=== PATIENT | male | born 1940 | race Caucasian/White ===

== ENCOUNTER 2016-09-12 06:39 | Day surgery (SDC) | payer MEDICARE ==
--- NOTE | 2016-09-09 12:07 | NUR ---
NN PATIENT IS POOR HISTORIAN CAN NOT REMEMBER IF HE HAD CERTAIN PROCEDURE OR NOT.PATIENT STATES DOES NOT RECALL BEING GIVEN CERTAIN DX FROM DOCTORS,ALL PAST MEDICAL HX FROM PATIENT AND PAST ADMITS-PT DENIES IS CHARTED ON ASSESSMENT.
[~2016-09-12] VITALS: Ht 166.4 cm; Wt 68.7 kg
[~2016-09-12 06:39] MED LIST: AMLO5TAB66 PO; FISH1CAP2 PO; HYDR-2164 PO; LISI-127 PO; LUTE1CAP PO; SAW/1TAB2 PO; SIMV20TA89 PO; UBID1CAP47 PO
--- OUTSIDE RECORDS SUMMARY | 2016-09-12 06:43 | XMS REPORT | Referral Summary ---
Author Author [facility], Family Medicine Organization [facility], [facility] Address Unknown Phone Unavailable Care Team Providers Care Microbiological Lab Technician Name Role Phone Lashanda Guerra Primary Care Physician [phone] Encounter VC Date(s): 04/08/15 - 04/08/15 [facility], [address] [place] [id number]- Discharge Disposition: 01-Home or Self Care Attending Physician: Sami Guerra MD Admitting Physician: Sami Guerra MD Vital Signs Most recent to 1 oldest [Reference Range]: Peripheral Pulse 64 bpm Rate [60-100 bpm] (04/08/15 2:56 PM) Blood Pressure 126/68 mmHg [90-140/60-90 mmHg] (04/08/15 2:56 PM) SpO2 97 % (04/08/15 2:56 PM) Problem List Condition Effective Dates Status Health Status Informant Allergic Active rhinitis/hay fever(Confirmed) Arthritis(Confirmed) Active Back Active problems(Confirmed) Benign essential Active hypertension(Confirm ed) BPH (benign Active prostatic hypertrophy)(Confirm ed)1 Bladder Active trabeculation, gross(Confirmed) Hematuria(Confirmed) Active Chronic interstitial Active cystitis - mild to moderate(Confirmed) Neck Active problems(Confirmed) Diverticulosis(Confi Active rmed) hx of broken Active bones(Confirmed)2 Measles(Confirmed) Active Combined Active hyperlipidemia(Confi rmed) Nocturia(Confirmed) Active Prostatism(Confirmed Active ) Bilateral renal Active cysts, benign(Confirmed)3 Varicella without Active complication(Confirm ed) 1left prostatic lobe more obstructed than right (apex) 2broken collar bone, and shoulder - see conversion document 3painless microscopic Allergies, Adverse Reactions, Alerts Substance Reaction Severity Status penicillin Active Medications Natalia 180 mg, Oral, Daily, 0 Refill(s) Start Date: 04/08/15 Status: Ordered Natalia Oral, 0 Refill(s) Start Date: 08/11/14 Status: Ordered amLODIPine 5 mg oral tablet See Instructions, TAKE 1/2 TABLET DAILY (NEED APPOINTMENT), # 30 tabs, 0 Refill( s), Pharmacy: [facility], TAKE 1 TABLET DAILY (NEED APPOINTMENT) Start Date: 02/25/15 Status: Ordered B-50 Blood Booster B-50 Blood Booster, 0 Refill(s) Start Date: 04/08/15 Status: Ordered Co Q-10 100 mg, Oral, Daily, 0 Refill(s) Start Date: 04/04/14 Status: Ordered GNC Prostate GNC Prostate, 0 Refill(s) Start Date: 06/27/14 Status: Ordered hydrochlorothiazide 25 mg oral tablet See Instructions, TAKE ONE-HALF (1/2) TABLET DAILY NEEDS APPT PRIOR TO ADDITIONAL REFILLS, # 15 tabs, 0 Refill(s), Pharmacy: [facility], TAKE ONE-HALF (1/2) TABLET DAILY; NEEDS APPT PRIOR TO ADDITIONAL REFILLS Start Date: 02/25/15 Status: Ordered ibuprofen 200 mg, BID, 0 Refill(s) Start Date: 06/27/14 Status: Ordered lisinopril 10 mg oral tablet See Instructions, TAKE 1/2 TABLET DAILY, # 90 tabs, eRx: [facility], TAKE 1 TABLET DAILY Start Date: 10/07/14 Status: Ordered Lutein Oral, Daily, 0 Refill(s) Start Date: 04/08/15 Status: Ordered multivitamin 1 tabs, Oral, Daily, 0 Refill(s) Start Date: 04/04/14 Status: Ordered simvastatin 40 mg oral tablet See Instructions, TAKE 1/2 TABLET AT BEDTIME (ONCE A DAY) (NEED APPOINTMENT FOR ANY FURTHER REFILLS), # 90 tabs, eRx: [facility], TAKE 1 TABLET AT BEDTIME (ONCE A DAY) (NEED APPOINTMENT FOR ANY FURTHER REFILLS) Start Date: 10/07/14 Status: Ordered Results Chemistry Most recent to 1 oldest [Reference Range]: Albumin Lvl [3.4-4.8 4.3 gm/dL gm/dL] (04/08/15 3:25 PM) Total Protein 6.6 gm/dL [6.2-8.1 gm/dL] (04/08/15 3:25 PM) ALT [0-55 U/L] 25 U/L (04/08/15 3:25 PM) AST [5-34 U/L] 26 U/L (04/08/15 3:25 PM) Alk Phos [40-150 55 U/L U/L] (04/08/15 3:25 PM) Bili Total [0.2-1.2 0.6 mg/dL mg/dL] (04/08/15 3:25 PM) Bili Direct [0.0-0.5 0.2 mg/dL mg/dL] (04/08/15 3:25 PM) Bili Indirect 0.4 mg/dL [0.0-1.0 mg/dL] (04/08/15 3:25 PM) Trig [0-149 mg/dL] 142 mg/dL (04/08/15 3:25 PM) HDL [40-84 mg/dL] 46 mg/dL (04/08/15 3:25 PM) LDL Direct [0-129 86 mg/dL mg/dL] (04/08/15 3:25 PM) Immunizations Vaccine Date Refusal Reason tetanus-diphth toxoids (Td) adult/adol 08/10/13 tetanus-diphth toxoids (Td) adult/adol 12/15/99 Procedures Procedure Date Related Diagnosis Body Site S/P colonoscopy1 11/25/10 S/P cystoscopy and hydrodistention 08/20/08 S/P colonoscopy 2006 S/P right hemicolectomy2 2006 S/P vasectomy 1979 H/O circumcision 1964 S/P tonsillectomy 1950 S/p appendectomy 1948 1cscope, tubular adenoma x1, hyperplastic polyp x1; repeat 5 years 2adenomatous lesion of ascending colon Social History Social History Type Response Smoking Status Never smoker Assessment and Plan Extracted from: Title: Ambulatory Patient Education Author: Sami Guerra MD Date: Family Medicine Fat and Cholesterol Control Diet Fat and cholesterol levels in your blood and organs are influenced by your diet. High levels of fat and cholesterol may lead to diseases of the heart, small and large blood vessels, gallbladder, liver, and pancreas. CONTROLLING FAT AND CHOLESTEROL WITH DIET Although exercise and lifestyle factors are important, your diet is phelps. That is because certain foods are known to raise cholesterol and others to lower it. The goal is to balance foods for their effect on cholesterol and more importantly, to replace saturated and trans fat with other types of fat, such as monounsaturated fat, polyunsaturated fat, and omega-3 fatty acids. On average, a person should consume no more than 15 to 17 g of saturated fat daily. Saturated and trans fats are considered "bad" fats, and they will raise LDL cholesterol. Saturated fats are primarily found in animal products such as meats, butter, and cream. However, that does not mean you need to give up all your favorite foods. Today, there are good tasting, low-fat, low-cholesterol substitutes for most of the things you like to eat. Choose low-fat or nonfat alternatives. Choose round or loin cuts of red meat. These types of cuts are lowest in fat and cholesterol. Chicken (without the skin), fish, veal, and ground turkey breast are great choices. Eliminate fatty meats, such as hot dogs and salami. Even shellfish have little or no saturated fat. Have a 3 oz (85 g) portion when you eat lean meat, poultry, or fish. Trans fats are also called "partially hydrogenated oils." They are oils that have been scientifically manipulated so that they are solid at room temperature resulting in a longer shelf life and improved taste and texture of foods in which they are added. Trans fats are found in stick margarine, some tub margarines, cookies, crackers, and baked goods. When baking and cooking, oils are a great substitute for butter. The monounsaturated oils are especially beneficial since it is believed they lower LDL and raise HDL. The oils you should avoid entirely are saturated tropical oils, such as coconut and palm. Remember to eat a lot from food groups that are naturally free of saturated and trans fat, including fish, fruit, vegetables, beans, grains (barley, rice, couscous, bulgur wheat), and pasta (without cream sauces). IDENTIFYING FOODS THAT LOWER FAT AND CHOLESTEROL Soluble fiber may lower your cholesterol. This type of fiber is found in fruits such as apples, vegetables such as broccoli, potatoes, and carrots, legumes such as beans, peas, and lentils, and grains such as barley. Foods fortified with plant sterols (phytosterol) may also lower cholesterol. You should eat at least 2 g per day of these foods for a cholesterol lowering effect. Read package labels to identify low-saturated fats, trans fat free, and low-fat foods at the supermarket. Select cheeses that have only 2 to 3 g saturated fat per ounce. Use a heart-healthy tub margarine that is free of trans fats or partially hydrogenated oil. When buying baked goods (cookies, crackers), avoid partially hydrogenated oils. Breads and muffins should be made from whole grains (whole-wheat or whole oat flour, instead of "flour" or "enriched flour") . Buy non-creamy canned soups with reduced salt and no added fats. FOOD PREPARATION TECHNIQUES Never deep-rojas. If you must rojas, either stir-rojas, which uses very little fat, or use non-stick cooking sprays. When possible, broil, bake, or roast meats, and steam vegetables. Instead of putting butter or margarine on vegetables, use lemon and herbs, applesauce, and cinnamon (for squash and sweet potatoes). Use nonfat yogurt, salsa, and low-fat dressings for salads. LOW-SATURATED FAT / LOW-FAT FOOD SUBSTITUTES Meats / Saturated Fat (g) Avoid: Steak, marbled (3 oz/85 g) / 11 g Choose: Steak, lean (3 oz/85 g) / 4 g Avoid: Hamburger (3 oz/85 g) / 7 g Choose: Hamburger, lean (3 oz/85 g) / 5 g Avoid: Ham (3 oz/85 g) / 6 g Choose: Ham, lean cut (3 oz/85 g) / 2.4 g Avoid: Chicken, with skin, dark meat (3 oz/85 g) / 4 g Choose: Chicken, skin removed, dark meat (3 oz/85 g) / 2 g Avoid: Chicken, with skin, light meat (3 oz/85 g) / 2.5 g Choose: Chicken, skin removed, light meat (3 oz/85 g) / 1 g Dairy / Saturated Fat (g) Avoid: Whole milk (1 cup) / 5 g Choose: Low-fat milk, 2% (1 cup) / 3 g Choose: Low-fat milk, 1% (1 cup) / 1.5 g Choose: Skim milk (1 cup) / 0.3 g Avoid: Hard cheese (1 oz/28 g) / 6 g Choose: Skim milk cheese (1 oz/28 g) / 2 to 3 g Avoid: Cottage cheese, 4% fat (1 cup) / 6.5 g Choose: Low-fat cottage cheese, 1% fat (1 cup) / 1.5 g Avoid: Ice cream (1 cup) / 9 g Choose: Sherbet (1 cup) / 2.5 g Choose: Nonfat frozen yogurt (1 cup) / 0.3 g Choose: Frozen fruit bar / trace Avoid: Whipped cream (1 tbs) / 3.5 g Choose: Nondairy whipped topping (1 tbs) / 1 g Condiments / Saturated Fat (g) Avoid: Mayonnaise (1 tbs) / 2 g Choose: Low-fat mayonnaise (1 tbs) / 1 g Avoid: Butter (1 tbs) / 7 g Choose: Extra light margarine (1 tbs) / 1 g Avoid: Coconut oil (1 tbs) / 11.8 g Choose: [place] oil (1 tbs) / 1.8 g Choose: [place] oil (1 tbs) / 1.7 g Choose: Safflower oil (1 tbs) / 1.2 g Choose: [place] oil (1 tbs) / 1.4 g Choose: Soybean oil (1 tbs) / 2.4 g Choose: Canola oil (1 tbs) / 1 g Document Released: 05/08/2006 Document Revised: 09/02/2013 Document Reviewed: [facility] Patient Information 2015 [facility]. This information is not intended to replace advice given to you by your health care provider. Make sure you discuss any questions you have with your health care provider. Hypertension Hypertension, commonly called high blood pressure, is when the force of blood pumping through your arteries is too strong. Your arteries are the blood vessels that carry blood from your heart throughout your body. A blood pressure reading consists of a higher number over a lower number, such as 110/72. The higher number (systolic) is the pressure inside your arteries when your heart pumps. The lower number (diastolic) is the pressure inside your arteries when your heart relaxes. Ideally you want your blood pressure below 120/80. Hypertension forces your heart to work harder to pump blood. Your arteries may become narrow or stiff. Having hypertension puts you at risk for heart disease, stroke, and other problems. RISK FACTORS Some risk factors for high blood pressure are controllable. Others are not. Risk factors you cannot control include: Race. You may be at higher risk if you are . Age. Risk increases with age. Gender. Men are at higher risk than women before age 45 years. After age 65 , women are at higher risk than men. Risk factors you can control include: Not getting enough exercise or physical activity. Being overweight. Getting too much fat, sugar, calories, or salt in your diet. Drinking too much alcohol. SIGNS AND SYMPTOMS Hypertension does not usually cause signs or symptoms. Extremely high blood pressure (hypertensive crisis) may cause headache, anxiety, shortness of breath , and nosebleed. DIAGNOSIS To check if you have hypertension, your health care provider will measure your blood pressure while you are seated, with your arm held at the level of your heart. It should be measured at least twice using the same arm. Certain conditions can cause a difference in blood pressure between your right and left arms. A blood pressure reading that is higher than normal on one occasion does not mean that you need treatment. If one blood pressure reading is high, ask your health care provider about having it checked again. TREATMENT Treating high blood pressure includes making lifestyle changes and possibly taking medicine. Living a healthy lifestyle can help lower high blood pressure. You may need to change some of your habits. Lifestyle changes may include: Following the DASH diet. This diet is high in fruits, vegetables, and whole grains. It is low in salt, red meat, and added sugars. Getting at least 2 hours of brisk physical activity every week. Losing weight if necessary. Not smoking. Limiting alcoholic beverages. Learning ways to reduce stress. If lifestyle changes are not enough to get your blood pressure under control, your health care provider may prescribe medicine. You may need to take more than one. Work closely with your health care provider to understand the risks and benefits. HOME CARE INSTRUCTIONS Have your blood pressure rechecked as directed by your health care provider. Take medicines only as directed by your health care provider. Follow the directions carefully. Blood pressure medicines must be taken as prescribed. The medicine does not work as well when you skip doses. Skipping doses also puts you at risk for problems. Do not smoke. Monitor your blood pressure at home as directed by your health care provider. SEEK MEDICAL CARE IF: You think you are having a reaction to medicines taken. You have recurrent headaches or feel dizzy. You have swelling in your ankles. You have trouble with your vision. SEEK IMMEDIATE MEDICAL CARE IF: You develop a severe headache or confusion. You have unusual weakness, numbness, or feel faint. You have severe chest or abdominal pain. You vomit repeatedly. You have trouble breathing. MAKE SURE YOU: Understand these instructions. Will watch your condition. Will get help right away if you are not doing well or get worse. Document Released: 05/08/2006 Document Revised: 09/22/2014 Document Reviewed: [facility] Patient Information 2015 [employer]. This information is not intended to replace advice given to you by your health care provider. Make sure you discuss any questions you have with your health care provider. No follow up information was provided. Extracted from: Title: Office Visit Note Author: Sami Guerra MD Date: 04/08/15 Assessment/Plan Benign essential hypertension Will get lab today fasting and continue with the current medications. Ordered: Office Visit Level 3 Est 35051 Bilateral renal cysts, benign Ordered: Office Visit Level 3 Est 33845 BPH (benign prostatic hypertrophy) Ordered: Office Visit Level 3 Est 98458 Combined hyperlipidemia Ordered: Cholesterol HDL Hepatic Function Panel LDL Direct Office Visit Level 3 Est 37416 Triglycerides Orders: amLODIPine, See Instructions, TAKE 1/2 TABLET DAILY (NEED APPOINTMENT) , # 30 tabs, 0 Refill(s), Pharmacy: [facility], TAKE 1 TABLET DAILY (NEED APPOINTMENT) lisinopril, See Instructions, TAKE 1/2 TABLET DAILY, # 90 tabs, eRx: [facility], TAKE 1 TABLET DAILY simvastatin, See Instructions, TAKE 1/2 TABLET AT BEDTIME (ONCE A DAY) (NEED APPOINTMENT FOR ANY FURTHER REFILLS), # 90 tabs, eRx: [facility], TAKE 1 TABLET AT BEDTIME (ONCE A DAY) (NEED APPOINTMENT FOR ANY FURTHER REFILLS)
--- OUTSIDE RECORDS SUMMARY | 2016-09-12 06:43 | XMS REPORT | Referral Summary ---
Author Author [facility], Family [facility] Organization [facility] Address Unknown Phone Unavailable Care Team Providers Care Civil Project Engineer Name Role Phone Lashanda Guerra Primary Care Physician [phone] Encounter Date(s): 06/03/16 - 06/03/16 [facility], [address] [place] [address]- Discharge Diagnosis: Eczema Discharge Diagnosis: Combined hyperlipidemia Discharge Diagnosis: Benign essential hypertension Discharge Disposition: 01-Home or Self Care Attending Physician: Sami Guerra MD Admitting Physician: Sami Guerra MD Vital Signs Most recent to 1 oldest [Reference Range]: Blood Pressure 122/74 mmHg [90-140/60-90 mmHg] (06/03/16 10:13 AM) Problem List Condition Effective Dates Status Health [...] Substance Reaction Severity Status penicillin Active Medications amLODIPine 5 mg oral tablet See Instructions, TAKE ONE-HALF TABLET BY MOUTH ONCE DAILY/ PT DUE FOR APPOINTMENT, # 45 tabs, 0 Refill(s), Pharmacy: [id number] Start Date: 06/03/16 Status: Ordered Co Q-10 100 mg, Oral, Daily, 0 Refill(s) Start Date: 04/04/14 Status: Ordered Elocon 0.1% topical cream 1 nirmal, Topical, BID, # 30 g, 0 Refill(s), Pharmacy: [id number] Start Date: 06/03/16 Stop Date: 06/13/16 Status: Ordered GNC Prostate GNC Prostate, 0 Refill(s) Start Date: 06/27/14 Status: Ordered hydroCHLOROthiazide 25 mg oral tablet See Instructions, TAKE ONE-HALF TABLET BY MOUTH ONCE DAILY, # 45 tabs, eRx: [facility], TAKE ONE-HALF TABLET BY MOUTH ONCE DAILY Start Date: 04/19/16 Status: Ordered lisinopril 10 mg oral tablet See Instructions, TAKE ONE-HALF TABLET BY MOUTH ONCE DAILY, # 45 tabs, eRx: [facility], TAKE ONE-HALF TABLET BY MOUTH ONCE DAILY Start Date: 04/19/16 Status: Ordered Lutein Oral, Daily, 0 Refill(s) Start Date: 04/08/15 Status: Ordered Several herbal supplements Several herbal supplements, 0 Refill(s) Start Date: 11/13/15 Status: Ordered simvastatin 40 mg oral tablet See Instructions, TAKE ONE-HALF TABLET BY MOUTH ONCE DAILY AT BEDTIME, # 90 tabs , eRx: [id number] Start Date: 06/03/16 Status: Ordered Results No data available for this section Immunizations Given and Recorded Vaccine Date Status Refusal Reason tetanus-diphth toxoids (Td) adult/adol 08/10/13 Given tetanus-diphth toxoids (Td) adult/adol 12/15/99 Recorded Procedures Procedure Date Related Diagnosis Body Site S/P colonoscopy1 11/25/10 S/P cystoscopy and hydrodistention 08/20/08 S/P colonoscopy 2006 S/P right hemicolectomy2 2006 S/P vasectomy 1979 H/O circumcision 1964 S/P tonsillectomy 1949 S/p appendectomy 1947 1cscope, tubular adenoma x1, hyperplastic polyp x1; repeat 5 years 2adenomatous lesion of ascending colon Social History Social History Type Response Smoking Status Never smoker Assessment and Plan Extracted from: Title: Ambulatory Patient Education Author: Sami Guerra MD Date: Preventive Medicine Heart Disease Prevention Heart disease is a leading cause of . There are many things you can do to help prevent heart disease. BE PHYSICALLY ACTIVE Physical activity is good for your heart. It helps control your blood pressure, cholesterol levels, and weight. Try to be physically active every day. Ask your health care provider what activities are best for you. BE A HEALTHY WEIGHT Extra weight can strain your heart and affect your blood pressure and cholesterol levels. Lose weight with diet and exercise if recommended by your health care provider. EAT HEART-HEALTHY FOODS Follow a healthy eating plan as recommended by your health care provider or dietitian. Heart-healthy foods include: High-fiber foods. These include oat bran, oatmeal, and whole-grain breads and cereals. Fruits and vegetables. Avoid: Alcohol. Fried foods. Foods high in saturated fat. These include meats, butter, whole dairy products, shortening, and coconut or palm oil. Salty foods. These include canned food, luncheon meat, salty snacks, and fast food. KEEP YOUR CHOLESTEROL LEVELS UNDER CONTROL Cholesterol is a substance that is used for many important functions. When your cholesterol levels are high, cholesterol can stick to the insides of your blood vessels, making them narrow or clog. This can lead to chest pain (angina) and a heart attack. Keep your cholesterol levels under control as recommended by your health care provider. Have your cholesterol checked at least once a year. Target cholesterol levels (in mg/dL) for most people are: Total cholesterol below 200. LDL cholesterol below 100. HDL cholesterol above 40 in men and above 50 in women. Triglycerides below 150. KEEP YOUR BLOOD PRESSURE UNDER CONTROL Having high blood pressure (hypertension) puts you at risk for stroke and other forms of heart disease. Keep your blood pressure under control as recommended by your health care provider. Ask your health care provider if you need treatment to lower your blood pressure. If you are 1839 years of age, have your blood pressure checked every 35 years. If you are 40 years of age or older, have your blood pressure checked every year. DO NOT USE TOBACCO PRODUCTS Tobacco smoke can damage your heart and blood vessels. Do not use any tobacco products including cigarettes, chewing tobacco, or electronic cigarettes. If you need help quitting, ask your health care provider. TAKE MEDICINES DIRECTED Take medicines only as directed by your health care provider. Ask your health care provider whether you should take an aspirin every day. Taking aspirin can help reduce your risk of heart disease and stroke. FOR MORE INFORMATION To find out more about heart disease, visit the [place] [employer]'s website at www.americanheart.org This information is not intended to replace advice given to you by your health care provider. Make sure you discuss any questions you have with your health care provider. Document Released: 12/20/2004 Document Revised: 05/29/2015 Document Reviewed: [employer] Patient Education 2016 [employer] No follow up information was provided. Extracted from: Title: Office Visit Note Author: Sami Guerra MD Date: 06/03/16 Assessment/Plan 1.Benign essential hypertension Continue with the current medications. Ordered: Office Visit Level 4 Est 37931 2.Combined hyperlipidemia No change in treatment and recheck lab in November with next office visit. Ordered: Office Visit Level 4 Est 80460 3.Eczema Rx for Elocon cream. Ordered: Office Visit Level 4 Est 66120
--- OUTSIDE RECORDS SUMMARY | 2016-09-12 06:43 | XMS REPORT | Referral Summary ---
Author Organization Unknown Address Unknown Phone Unavailable Care Team Providers Care Printing Manager Name Role Phone Lashanda Guerra Primary Care Physician [phone] Encounter VC Date(s): 06/27/14 - 06/27/14 Via [facility] Reyez, Puneet, Family [address] [place] [address] Discharge Diagnosis: Bilateral renal cysts, benign Discharge Diagnosis: BPH (benign prostatic hypertrophy) Discharge Diagnosis: Benign essential hypertension Discharge Diagnosis: Arthritis Discharge Diagnosis: Combined hyperlipidemia Discharge Disposition: Home or Self Care Attending Physician: Sami Guerra MD Admitting Physician: Sami Guerra MD Vital Signs Most recent to 1 oldest [Reference Range]: Temperature Tympanic 36.3 degC [36.6-38.1 degC] *LOW* (06/27/14 8:07 AM) Blood Pressure 124/80 mmHg [90-140/60-90 mmHg] (06/27/14 8:07 AM) Problem List Condition Effective Dates Status [...] 5 mg oral tablet See Instructions, TAKE 0.5 TABLET DAILY, # 90 tabs, eRx: [facility], TAKE 1 TABLET DAILY Special Instructions: TAKE 0.5 TABLET DAILY Start Date: 12/04/13 Status: Ordered Co Q-10 100 mg, Oral, Daily, 0 Refill(s) Start Date: 04/04/14 Status: Ordered Fish Oil 1000 mg oral capsule 1 caps, Oral, BID, # 60 caps, 0 Refill(s) Start Date: 04/04/14 Status: Ordered GNC Prostate GNC Prostate, 0 Refill(s) Start Date: 06/27/14 Status: Ordered hydrochlorothiazide 25 mg oral tablet See Instructions, TAKE ONE-HALF (1/2) TABLET DAILY (NEED APPOINTMENT FOR REFILLS ), # 45 tabs, eRx: [facility], TAKE ONE-HALF (1/2) TABLET DAILY (NEED APPOINTMENT FOR REFILLS) Special Instructions: TAKE ONE-HALF (1/2) TABLET DAILY (NEED APPOINTMENT FOR REFILLS) Start Date: 06/02/14 Status: Ordered ibuprofen 200 mg, BID, 0 Refill(s) Start Date: 06/27/14 Status: Ordered lisinopril 10 mg oral tablet See Instructions, TAKE 0.5 TABLET DAILY, # 90 tabs, 1 Refill(s), eRx: [facility], TAKE 1 TABLET DAILY Special Instructions: TAKE 0.5 TABLET DAILY Start Date: 12/12/13 Status: Ordered multivitamin 1 tabs, Oral, Daily, 0 Refill(s) Start Date: 04/04/14 Status: Ordered simvastatin 40 mg oral tablet 1 tabs, Oral, Bedtime (once a day), Pt needs appt for any further refills. Fax to [facility] , # 90 tabs, 0 Refill(s) Special Instructions: Pt needs appt for any further refills. Fax to [facility] Start Date: 11/29/13 Status: Ordered Results Hematology Most recent to 1 oldest [Reference Range]: WBC [4.8-10.8 K/uL] 5.6 K/uL (06/27/14 8:51 AM) RBC [4.60-6.20 M/uL] 4.50 M/uL *LOW* (06/27/14 8:51 AM) Hgb [14.0-18.0 14.0 gm/dL gm/dL] (06/27/14 8:51 AM) Hct [42.0-52.0 %] 39.6 % *LOW* (06/27/14:51 AM) MCV [82.0-99.0 fL] 88.0 fL (06/27/14 8:51 AM) MCH [27.0-32.0 pg] 31.1 pg (06/27/14 8:51 AM) MCHC [32.0-36.0 35.4 gm/dL gm/dL] (06/27/14 8:51 AM) RDW [11.5-14.5 %] 12.6 % (06/27/14 8:51 AM) Platelet [150-400 239 K/uL K/uL] (06/27/14 8:51 AM) MPV [8.8-14.8 fL] 9.2 fL (06/27/14 8:51 AM) Immature 0.0 % Granulocytes (06/27/14 8:51 AM) [0.0-1.0 %] Neutrophils [51-75 66 % %] (06/27/14 8:51 AM) Lymphocytes [20-46 21 % %] (06/27/14 8:51 AM) Monocytes [4-11 %] 8 % (06/27/14 8:51 AM) Eosinophils [0-4 %] 4 % (06/27/14 8:51 AM) Basophils [0-2 %] 1 % (06/27/14 8:51 AM) Neutro Absolute 3.74 THOUS [1.90-7.00 THOUS] (06/27/14 8:51 AM) Lymph Absolute 1.19 THOUS [0.80-3.30 THOUS] (06/27/14 8:51 AM) Medina Absolute 0.46 THOUS [0.30-1.00 THOUS] (06/27/14 8:51 AM) Eos Absolute 0.22 THOUS [0.00-0.50 THOUS] (06/27/14 8:51 AM) Baso Absolute 0.03 THOUS [0.00-0.20 THOUS] (06/27/14 8:51 AM) Chemistry Most recent to 1 oldest [Reference Range]: Sodium Lvl [135-144 144 mEq/L mEq/L] (06/27/14 8:51 AM) Potassium Lvl 3.9 mEq/L [3.5-5.2 mEq/L] (06/27/14 8:51 AM) Chloride [99-111 107 mEq/L mEq/L] (06/27/14 8:51 AM) CO2 [23-31 mEq/L] 28 mEq/L (06/27/14 8:51 AM) AGAP [3-20] 9 (06/27/14 8:51 AM) BUN [8-26 mg/dL] 19 mg/dL (06/27/14 8:51 AM) Glucose Lvl [70-99 100 mg/dL mg/dL] *HI* (06/27/14 8:51 AM) Creatinine Lvl 0.88 mg/dL [0.72-1.25 mg/dL] (06/27/14 8:51 AM) eGFR [>60 mL/min] >60 mL/min 1 (06/27/14 8:51 AM) Calcium Lvl 9.4 mg/dL [8.9-10.5 mg/dL] (06/27/14 8:51 AM) Albumin Lvl [3.4-4.8 4.0 gm/dL gm/dL] (06/27/14 8:51 AM) Total Protein 6.2 gm/dL [6.2-8.1 gm/dL] (06/27/14 8:51 AM) Globulin [1.8-4.0 2.2 gm/dL gm/dL] (06/27/14 8:51 AM) ALT [0-55 unit/L] 21 unit/L (06/27/14 8:51 AM) AST [5-34 unit/L] 22 unit/L (06/27/14 8:51 AM) Alk Phos [40-150 57 unit/L unit/L] (06/27/14 8:51 AM) Bili Total [0.2-1.2 0.7 mg/dL mg/dL] (06/27/14 8:51 AM) PSA (wihout Reflex 0.2 ng/mL 2 Free) [0.0-6.5 (06/27/14 8:51 AM) ng/mL] Chol [0-199 mg/dL] 135 mg/dL (06/27/14 8:51 AM) Trig [0-149 mg/dL] 87 mg/dL (06/27/14 8:51 AM) HDL [40-84 mg/dL] 40 mg/dL (06/27/14 8:51 AM) LDL [0-130 mg/dL] 78 mg/dL (06/27/14 8:51 AM) VLDL Cholesterol 17 mg/dL [0-28 mg/dL] (06/27/14 8:51 AM) Cardiac Risk 3.4 [0.0-5.7] (06/27/14 8:51 AM) 1Result Comment: Multiply eGFR results by 1.21 for race. 2Result Comment: AUA PSA Best Practice Guidelines: Age-Adjusted PSA Values by Ethnic Group Age Range Asians - Caucasians Americans 40-49 0-2.0 0-2.0 0-2.5 50-59 0-3.0 0-4.0 0-3.5 60-69 0-4.0 0-4.5 0-4.5 70-79 0-5.0 0-5.5 0-6.5 Immunizations Vaccine Date Refusal Reason tetanus-diphth toxoids (Td) adult/adol 08/10/13 tetanus-diphth toxoids (Td) adult/adol 12/15/99 Procedures Procedure Date Related Diagnosis Body Site S/P colonoscopy1 11/25/10 S/P cystoscopy and hydrodistention 08/20/08 S/P colonoscopy 2006 S/P right hemicolectomy2 2006 S/P vasectomy 1979 H/O circumcision 1965 S/P tonsillectomy 1950 S/p appendectomy 1947 1cscope, tubular adenoma x1, hyperplastic polyp x1; repeat 5 years 2adenomatous lesion of ascending colon Social History Social History Type Response Smoking Status Never smoker Assessment and Plan Extracted from: Title: Ambulatory Patient Education Author: Sami Guerra MD Date: 06/27 Family Medicine Arthritis, Nonspecific Arthritis is inflammation of a joint. This usually means pain, redness, warmth or swelling are present. One or more joints may be involved. There are a number of types of arthritis. Your caregiver may not be able to tell what type of arthritis you have right away. CAUSES The most common cause of arthritis is the wear and tear on the joint ( osteoarthritis ). This causes damage to the cartilage, which can break down over time. The knees, hips, back and neck are most often affected by this type of arthritis. Other types of arthritis and common causes of joint pain include: Sprains and other injuries near the joint. Sometimes minor sprains and injuries cause pain and swelling that develop hours later. Rheumatoid arthritis. This affects hands, feet and knees. It usually affects both sides of your body at the same time. It is often associated with chronic ailments, fever, weight loss and general weakness. Crystal arthritis. Gout and pseudo gout can cause occasional acute severe pain, redness and swelling in the foot, ankle, or knee. Infectious arthritis. Bacteria can get into a joint through a break in overlying skin. This can cause infection of the joint. Bacteria and viruses can also spread through the blood and affect your joints. Drug, infectious and allergy reactions. Sometimes joints can become mildly painful and slightly swollen with these types of illnesses. SYMPTOMS Pain is the main symptom. Your joint or joints can also be red, swollen and warm or hot to the touch. You may have a fever with certain types of arthritis, or even feel overall ill. The joint with arthritis will hurt with movement. Stiffness is present with some types of arthritis. DIAGNOSIS Your caregiver will suspect arthritis based on your description of your symptoms and on your exam. Testing may be needed to find the type of arthritis: Blood and sometimes urine tests. X-ray tests and sometimes CT or MRI scans. Removal of fluid from the joint (arthrocentesis ) is done to check for bacteria, crystals or other causes. Your caregiver (or a specialist) will numb the area over the joint with a local anesthetic, and use a needle to remove joint fluid for examination. This procedure is only minimally uncomfortable. Even with these tests, your caregiver may not be able to tell what kind of arthritis you have. Consultation with a specialist (manager security ) may be helpful. TREATMENT Your caregiver will discuss with you treatment specific to your type of arthritis. If the specific type cannot be determined, then the following general recommendations may apply. Treatment of severe joint pain includes: Rest. Elevation. Anti-inflammatory medication (for example, ibuprofen) may be prescribed. Avoiding activities that cause increased pain. Only take [id number] or prescription medicines for pain and discomfort as recommended by your caregiver. Cold packs over an inflamed joint may be used for 10 to 15 minutes every hour. Hot packs sometimes feel better, but do not use overnight. Do not use hot packs if you are diabetic without your caregiver's permission. A cortisone shot into arthritic joints may help reduce pain and swelling. Any acute arthritis that gets worse over the next 1 to 2 days needs to be looked at to be sure there is no joint infection. Long-term arthritis treatment involves modifying activities and lifestyle to reduce joint stress jarring. This can include weight loss. Also, exercise is needed to nourish the joint cartilage and remove waste. This helps keep the muscles around the joint strong. HOME CARE INSTRUCTIONS Do not take aspirin to relieve pain if gout is suspected. This elevates uric acid levels. Only take vwol-nys-vfjntmm or prescription medicines for pain, discomfort or fever as directed by your caregiver. Rest the joint as much as possible. If your joint is swollen, keep it elevated. Use crutches if the painful joint is in your leg. Drinking plenty of fluids may help for certain types of arthritis. Follow your caregiver's dietary instructions. Try low-impact exercise such as: Swimming. Water aerobics. Biking. Walking. Morning stiffness is often relieved by a warm shower. Put your joints through regular yhycp-zm-mcfsms. SEEK MEDICAL CARE IF: You do not feel better in 24 hours or are getting worse. You have side effects to medications, or are not getting better with treatment. SEEK IMMEDIATE MEDICAL CARE IF: You have a fever. You develop severe joint pain, swelling or redness. Many joints are involved and become painful and swollen. There is severe back pain and/or leg weakness. You have loss of bowel or bladder control. Document Released: 06/15/2005 Document Revised: 07/30/2012 Document Reviewed: [facility] Patient Information 2014 [employer]. No follow up information was provided. Extracted from: Title: Office Visit Note Author: Sami Guerra MD Date: 06/27/14 Assessment/Plan Arthritis Continue with the current medications. Suggest starting edmundo for allergies and Naphcon-A for the eye. Continue with the drops for the dry eyes. Also use Cortisone-10 for the eczema to the ear canals. Ordered: Office Visit Level 4 Est 78868 Benign essential hypertension Ordered: Office Visit Level 4 Est 96735 Bilateral renal cysts, benign Ordered: Office Visit Level 4 Est 31771 BPH (benign prostatic hypertrophy) Ordered: Office Visit Level 4 Est 58873 Combined hyperlipidemia Ordered: Office Visit Level 4 Est 90803 Orders: CBC w/ Differential Comprehensive Metabolic Panel Lipid Panel Prostate Specific Antigen
--- OUTSIDE RECORDS SUMMARY | 2016-09-12 06:43 | XMS REPORT | Referral Summary ---
Author Organization Unknown Address Unknown Phone Unavailable Care Team Providers Care Access Service Representative Name Role Phone Lashanda Guerra Primary Care Physician [phone] Encounter VC Date(s): 08/11/14 - 08/11/14 Via [facility]GARD Reyez, Puneet [address] [place] [id number] Discharge Diagnosis: Abscess of neck Discharge Disposition: Home or Self Care Attending Physician: Quoc Camara MD Admitting Physician: Quoc Camara MD Referring Physician: Sami Guerra MD Vital Signs Most recent to 1 oldest [Reference Range]: Temperature Tympanic 37.2 degC [36.6-38.1 degC] (08/11/14 5:33 PM) Peripheral Pulse 77 bpm Rate [60-100 bpm] (08/11/14 5:33 PM) Blood Pressure 120/76 mmHg [90-140/60-90 mmHg] (08/11/14 5:33 PM) Most recent to 1 oldest [Reference Range]: SpO2 97 % (08/11/14 5:33 PM) Problem List Condition Effective Dates Status [...] Reaction Severity Status penicillin Active Medications Natalia Oral, 0 Refill(s) Start Date: 08/11/14 Status: Ordered amLODIPine 5 mg oral tablet See Instructions, TAKE 1 TABLET DAILY (NEED APPOINTMENT), # 90 tabs, eRx: [facility], TAKE 1 TABLET DAILY (NEED APPOINTMENT) Special Instructions: TAKE 1 TABLET DAILY (NEED APPOINTMENT) Start Date: 08/04/14 Status: Ordered Bactrim DS 800 mg-160 mg oral tablet 1 tabs, Oral, BID, X 10 days, # 20 tabs, 0 Refill(s), Pharmacy: [id number] Start Date: 08/11/14 Stop Date: 08/21/14 Status: Ordered Co Q-10 100 mg, Oral, Daily, 0 Refill(s) Start Date: 04/04/14 Status: Ordered GNC Prostate GNC Prostate, 0 Refill(s) Start Date: 06/27/14 Status: Ordered hydrochlorothiazide 25 mg oral tablet See Instructions, TAKE ONE-HALF (1/2) TABLET DAILY, # 45 tabs, 1 Refill(s), [facility]acy: [facility], TAKE ONE-HALF (1/2) TABLET DAILY Special Instructions: TAKE ONE-HALF (1/2) TABLET DAILY Start Date: 08/04/14 Status: Ordered ibuprofen 200 mg, BID, 0 [...] appt for any further refills. Fax to [facility] , # 90 tabs, 0 Refill(s) Special Instructions: Pt needs appt for any further refills. Fax to [facility] Start Date: 11/29/13 Status: Ordered Results No data available for this section Immunizations Vaccine Date Refusal Reason tetanus-diphth toxoids (Td) adult/adol 08/10/13 tetanus-diphth toxoids (Td) adult/adol 12/15/99 Procedures Procedure Date Related Diagnosis Body Site Incision and drainage of abscess (eg, 08/11/14 carbuncle, suppurative hidradenitis, cutaneous or subcutaneous abscess, cyst, furuncle, or paronychia); simple or single S/P colonoscopy1 11/25/10 S/P cystoscopy and hydrodistention 08/20/08 S/P colonoscopy 2006 S/P right hemicolectomy2 2006 S/P vasectomy 1979 H/O circumcision 1964 S/P tonsillectomy 1949 S/p appendectomy 1947 1cscope, tubular adenoma x1, hyperplastic polyp x1; repeat 5 years 2adenomatous lesion of ascending colon Social History Social History Type Response Smoking Status Never smoker Assessment and Plan Extracted from: Title: Office Visit Note Author: Quoc Camara MD Date: 08/11/14 Assessment/Plan Abscess of neck The area over the abscess was anesthetized with 1 percent lidocaine. After cleansing with Betadine. A stab wound was then made with an 11 blade and a small amount of purulent drainage was expressed from the area. The opening was explored with straight Lakisha clamp, no pockets were noted. Cavity was not large enough to pack. A sterile dressing was applied. I encouraged him to use heat to the area and we started him on Bactrim DS 1 by mouth twice a day for 10 days. If it's not improving over the next few days. He should follow-up with his regular PCP. Ordered: Drain Skin Abscess, Simple/Single 93460 Orders: sulfamethoxazole-trimethoprim, 1 tabs, Oral, BID, X 10 days, # 20 tabs , 0 Refill(s), Pharmacy: [id number]
--- OUTSIDE RECORDS SUMMARY | 2016-09-12 06:43 | XMS REPORT | Continuity of Care Document ---
Author Author Sincere PAULINO, Shayla [facility] Address [address] [facility] [place] [address] Phone Care Team Providers Care Radiologic Technician Name Role Phone Sami Guerra PP Unavailable Payers Payer name Insurance type Covered republican ID Authorization(s) Unknown Problems Condition Effective Dates (start - stop) Clinical Status Contact dermatitis - *Acute Hypertension, benign - *Chronic Hyperlipidemia - *Chronic Hypertension, Benign - *Chronic Hypertension, Unspecified - *Stable Encounter for therapeutic drug monitoring - *Routine Other and unspecified hyperlipidemia - *Controlled Hypertension, Benign - *Controlled Contact dermatitis - *Chronic Health examination of defined subpopulation - *Chronic Routine Medical Exam - Hypertension, Unspecified - *Controlled Other and unspecified hyperlipidemia - *Chronic Encounter for therapeutic drug monitoring - *Chronic 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 - BENIGN HYPERTENSION - ALLERGIC RHINITIS NOS - Family History Family Member Diagnosis Age At Onset Status Unknown Social History Social History Element Description Quantity Unknown Allergies, Adverse Reactions, Alerts Substance Reaction Severity Status LATEX itchyrash, arms, hands and trunk Unknown PENICILLINS Unknown Medications Medication Instructions Dosage Effective Dates (start - stop) Status triamcinolone acetonide 0.1 % topical ointment apply by topical route 2 times every day a thin layer to the affected area(s) 0 - Active prednisone 20 mg tablet take 2 tablets by oral route every day for 5 days - No Longer Active lisinopril 10 mg tablet Take 1 tablet by mouth every day. - Active Fish Oil 300 mg-1,000 mg capsule,delayed release 1 am 2 pm - Active lutein-zeaxanthin 25 mg-5 mg capsule daily - Active Multiple Vitamins tablet take 1 Tablet by Oral route every day 0 2012 - Active daily - Active simvastatin 40 mg tablet Take 0.5 tablets by mouth at bedtime. 2012 - Active hydrochlorothiazide 25 mg tablet Take 0.5 tablets by mouth every day. - Active Norvasc 5 mg tablet Take 1 tablet by mouth every day. - Active Immunizations Vaccine Date Status Comments Tdap cancelled - Cancelled reason: Doctor cancelled order. Td (7 yrs or older) completed Results Test Name Date and Time Measure Units Reference Range Abnormal Flag Comments Unknown Vital Signs Date / Time: Height Weight Pulse Rate Blood Pressure Temperature /11:09:00 155.00 lbs 55 /min 128/82 mm[Hg] 97.5 F Procedures Procedure Date Unknown Encounters Encounter Location Date Patient Visit [facility] Patient Visit [facility] Patient Visit [facility] Patient Visit [facility] Patient Visit [facility] Patient Visit [facility] Patient Visit [facility] Patient Visit [facility] Patient Visit [facility] Patient Visit [facility] Patient Visit Conversion Advance Directives Directive Effective Date Unknown
--- OUTSIDE RECORDS SUMMARY | 2016-09-12 06:43 | XMS REPORT | Referral Summary ---
Author Author [facility], [facility] Organization [facility], [facility] Address Unknown Phone Unavailable Care Team Providers Care Proof Plate Maker Name Role Phone Lashanda Guerra Primary Care Physician [phone] Encounter VC Date(s): 11/17/15 - 11/17/15 [facility], [address] [place] [id number]- Discharge Disposition: 01-Home or Self Care Attending Physician: Sami Guerra MD Admitting Physician: Sami Guerra MD Vital Signs Most recent to 1 oldest [Reference Range]: Temperature Tympanic 35.9 degC [36.6-38.1 degC] *LOW* (11/17/15 9:45 AM) Peripheral Pulse 80 bpm Rate [60-100 bpm] (11/17/15 9:45 AM) Blood Pressure 122/80 mmHg [90-140/60-90 mmHg] (11/17/15 9:45 AM) Problem List Condition Effective Dates Status [...] tablet See Instructions, TAKE 1/2 TABLET DAILY . will need appt. for next refill., # 45 Each, 0 Refill(s), Pharmacy: [id number], TAKE 1/2 TABLET DAILY . will need appt. for next refill. Start Date: 07/07/15 Status: Ordered B-50 Blood Booster B-50 Blood Booster, 0 Refill(s) Start Date: 04/08/15 Status: Ordered Co Q-10 100 mg, Oral, Daily, 0 Refill(s) Start Date: 04/04/14 Status: Ordered GNC Prostate GNC Prostate, 0 Refill(s) Start Date: 06/27/14 Status: Ordered hydrochlorothiazide 25 mg oral tablet See Instructions, TAKE ONE-HALF TABLET BY MOUTH ONCE DAILY, # 45 tabs, eRx: [place] [id number], TAKE ONE-HALF TABLET BY MOUTH ONCE DAILY Start Date: 10/16/15 Status: Ordered lisinopril 10 mg oral tablet See Instructions, TAKE ONE-HALF TABLET BY MOUTH ONCE DAILY, # 45 tabs, eRx: [place] [id number], TAKE ONE-HALF TABLET BY MOUTH ONCE DAILY Start Date: 10/16/15 Status: Ordered Lutein Oral, Daily, 0 Refill(s) Start Date: 04/08/15 Status: Ordered multivitamin 1 tabs, Oral, Daily, 0 Refill(s) Start Date: 04/04/14 Status: Ordered Several herbal supplements Several herbal supplements, 0 Refill(s) Start Date: 11/13/15 Status: Ordered simvastatin 40 mg oral tablet See Instructions, TAKE 1/2 TABLET AT BEDTIME (ONCE A DAY) (NEED APPOINTMENT FOR ANY FURTHER REFILLS), # 90 tabs, 0 Refill(s), Pharmacy: [place] [id number], TAKE 1/2 TABLET AT BEDTIME (ONCE A DAY) (NEED APPOINTMENT FOR ANY FURTHER REFILLS) Start Date: 05/21/15 Status: Ordered Tobrex 0.3% ophthalmic solution 1 drops, Eye-Both, QID, X 7 days, # 5 mL, 0 Refill(s), Pharmacy: [facility] Start Date: 11/17/15 Stop Date: 11/24/15 Status: Ordered Results No data available for this section Immunizations Vaccine Date Refusal Reason tetanus-diphth toxoids (Td) adult/adol 08/10/13 tetanus-diphth toxoids (Td) adult/adol 12/15/99 Procedures Procedure Date Related Diagnosis Body Site S/P colonoscopy1 11/25/10 S/P cystoscopy and hydrodistention 08/20/08 S/P colonoscopy 2006 S/P right hemicolectomy2 2006 S/P vasectomy 1979 H/O circumcision 1965 S/P tonsillectomy 1950 S/p appendectomy 194 1cscope, tubular adenoma x1, hyperplastic polyp x1; repeat 5 years 2adenomatous lesion of ascending colon Social History Social History Type Response Smoking Status Never smoker Assessment and Plan Extracted from: Title: Ambulatory Patient Education Author: Sami Guerra MD Date: Ophthalmology Bacterial Conjunctivitis Bacterial conjunctivitis, commonly called pink eye, is an inflammation of the clear membrane that covers the white part of the eye (conjunctiva). The inflammation can also happen on the underside of the eyelids. The blood vessels in the conjunctiva become inflamed, causing the eye to become red or pink. Bacterial conjunctivitis may spread easily from one eye to another and from person to person (contagious). CAUSES Bacterial conjunctivitis is caused by bacteria. The bacteria may come from your own skin, your upper respiratory tract, or from someone else with bacterial conjunctivitis. SYMPTOMS The normally white color of the eye or the underside of the eyelid is usually pink or red. The pink eye is usually associated with irritation, tearing, and some sensitivity to light. Bacterial conjunctivitis is often associated with a thick, yellowish discharge from the eye. The discharge may turn into a crust on the eyelids overnight, which causes your eyelids to stick together. If a discharge is present, there may also be some blurred vision in the affected eye. DIAGNOSIS Bacterial conjunctivitis is diagnosed by your caregiver through an eye exam and the symptoms that you report. Your caregiver looks for changes in the surface tissues of your eyes, which may point to the specific type of conjunctivitis. A sample of any discharge may be collected on a cotton-tip swab if you have a severe case of conjunctivitis, if your cornea is affected, or if you keep getting repeat infections that do not respond to treatment. The sample will be sent to a lab to see if the inflammation is caused by a bacterial infection and to see if the infection will respond to antibiotic medicines. TREATMENT Bacterial conjunctivitis is treated with antibiotics. Antibiotic eyedrops are most often used. However, antibiotic ointments are also available. Antibiotics pills are sometimes used. Artificial tears or eye washes may ease discomfort. HOME CARE INSTRUCTIONS To ease discomfort, apply a cool, clean washcloth to your eye for 10 20 minutes, 34 times a day. Gently wipe away any drainage from your eye with a warm, wet washcloth or a cotton ball. Wash your hands often with soap and water. Use paper towels to dry your hands. Do not share towels or washcloths. This may spread the infection. Change or wash your pillowcase every day. You should not use eye makeup until the infection is gone. Do not operate machinery or drive if your vision is blurred. Stop using contact lenses. Ask your caregiver how to sterilize or replace your contacts before using them again. This depends on the type of contact lenses that you use. When applying medicine to the infected eye, do not touch the edge of your eyelid with the eyedrop bottle or ointment tube. SEEK IMMEDIATE MEDICAL CARE IF: Your infection has not improved within 3 days after beginning treatment. You had yellow discharge from your eye and it returns. You have increased eye pain. Your eye redness is spreading. Your vision becomes blurred. You have a fever or persistent symptoms for more than 23 days. You have a fever and your symptoms suddenly get worse. You have facial pain, redness, or swelling. MAKE SURE YOU: Understand these instructions. Will watch your condition. Will get help right away if you are not doing well or get worse. This information is not intended to replace advice given to you by your health care provider. Make sure you discuss any questions you have with your health care provider. Document Released: 05/08/2006 Document Revised: 05/29/2015 Document Reviewed: Exit[employer] Patient Information [address] [facility]. No follow up information was provided. Extracted from: Title: Office Visit Note Author: Sami Guerra MD Date: 11/17/15 Assessment/Plan Left conjunctivitis Rx for Tobrex ophth. Ordered: Office Visit Level 3 Est 02088 Orders: tobramycin ophthalmic, 1 drops, Eye-Both, QID, X 7 days, # 5 mL, 0 Refill(s), Pharmacy: [id number]
--- OUTSIDE RECORDS SUMMARY | 2016-09-12 06:43 | XMS REPORT | Continuity of Care Document ---
Author Author [facility] Organization [facility] Address Unknown Phone Unavailable Allergies Active Description Code Type Severity Reaction Onset Reported/Identified Relationship to Patient Clinical Status Yes penicillin NKMA N/A N/A 09/18/2013 Medications Problems Procedures Results Test Result Range Sedimentation Rate - 11/13/15 10:01 Sedimentation Rate 8 mm/h 0-15 Lipid Panel - 11/13/15 10:01 Cardiac Risk 3.0 0.0-5.7 Cholesterol 123 mg/dL 0-199 HDL Cholesterol 41 mg/dL 40-84 LDL Cholesterol 66 mg/dL 0-130 Triglycerides 82 mg/dL 0-149 VLDL Cholesterol 16 mg/dL 0-28 Comprehensive Metabolic Panel (CMP) - 11/13/15 10:01 Albumin 4.2 g/dL 3.4-4.8 Alkaline Phosphatase 65 U/L 40-150 ALT (SGPT) 18 U/L 0-55 Anion Gap 3 NA 3-20 AST (SGOT) 18 U/L 5-34 Bilirubin Total 0.5 mg/dL 0.2-1.2 BUN 22 mg/dL 8-26 Calcium 9.3 mg/dL 8.9-10.5 Chloride 105 mEq/L 99-111 CO2 33 mEq/L 23-31 Creatinine 0.96 mg/dL 0.72-1.25 Globulin 1.9 g/dL 1.8-4.0 Glucose 104 mg/dL 70-99 Potassium 4.2 mEq/L 3.5-5.2 Protein 6.1 g/dL 6.2-8.1 Sodium 141 mEq/L 135-144 Creatine Kinase (CPK) - 11/13/15 10:01 Creatine Kinase (CPK) 134 U/L 30-200 eGFR - 11/13/15 10:01 eGFR >60 mL/min >60 PSA - 11/13/15 10:01 PSA 0.2 ng/mL 0.0-6.5 Encounters ACCT No. Visit Date/Time Discharge Status Pt. Type Provider Facility Loc./Unit Complaint [id number] 08/10/2013 10:53:00 08/10/2013 23 :59:59 CLS Outpatient
[2016-09-12 06:58] VITALS: Ht 166.4 cm; Wt 68.7 kg
[2016-09-12 06:59] VITALS: BP 122/72; PULSE 70; RESP 14; TEMP 97.7; O2SAT 96
[2016-09-12] MEDS ORDERED: LIDOCAINE 1% (10mg/ml) 2ml SDV INJ ONE (07:00)
[2016-09-12] MEDS ORDERED: LR 1,000 ML IV SCH (07:00)
--- NOTE | 2016-09-12 07:26 | ANESPREOP ---
Anesthesia Record Date and Time DATE: 09/12/16 TIME: 07:23 Pre-Op Diagnosis personnel history of polyps Proposed Surgical Procedure COLONOSCOPY NPO since: mn Allergies: Coded Allergies: Penicillins (Verified Allergy, Unknown, 09/12/16) Ht/Wt/BMI Height: 5 ' 5.50 " Weight: 68.740 kg BMI: 24.8 kg/m2 Vital Signs Date Time Temp Pulse Resp B/P Pulse Ox O2 Delivery O2 Flow Rate FiO2 09/12/16 06:59 97.7 70 14 122/72 96 Room Air Medications Inpatient Medications Current Medications Medications (Trade) Dose Ordered Sig/Shiv Start Time Stop Time Status Last Admin Dose Admin Lactated Ringer's (Lactated Ringers) 1,000 ml @ 30 mls/hr Q24H 09/12/16 07:00 09/12/16 07:19 30 MLS/HR Amlodipine Besylate (Norvasc) 5 Mg Tablet, 5 MG PO DAILY, (Reported) Last Taken: on 09/12/16 0530 Hydrochlorothiazide (Hydrochlorothiazide) 25 Mg Tablet, 0.5 TAB PO DAILY, (Reported) Last Taken: on 09/11/16 0800 Lisinopril (Lisinopril) 10 Mg Tablet, 5 MG PO DAILY, (Reported) Last Taken: on 09/11/16 08 Lutein Extract/Zeaxanthin Ext (Lutein 15 mg Softgel) 1 Each Capsule, 1 CAP PO DAILY, (Reported) Last Taken: on 09/11/161999 Buhl-3 Fatty Acids/Fish Oil (Fish Oil 1,000 mg Capsule) 1 Each Capsule, 1,000 MG PO DAILY, (Reported) Last Taken: on 08/22/16 08 Saw/Vit E/Sod [place]/Lyc/Beta/Pyg (Prostate Health Caplet) 1 Each Tablet, 1 TAB PO DAILY, (Reported) Last Taken: on 09/11/16 08 Simvastatin (Simvastatin) 20 Mg Tablet, 20 MG PO DAILY, (Reported) Last Taken: on 09/11/161999 Ubidecarenone/Vit E Acetate (Co Q-10 100 mg Softgel) 1 Each Capsule, 1 CAP PO DAILY, (Reported) Last Taken: on 08/22/16 0800 Currently on Beta Mirna: No Medical/Surgical History Anesthesia PMH: Reports: *Dyspnea (ON EXERTION), *Hypertension, Arthritis, Sleep Apnea, Denies: *Angina, *Diabetes, *VA, Anesthesia Reactions (NO AIRWAY ISSUES), Asthma, CHF, COPD, CVA/Stroke/TIA, Cancer, Clotting Problems, Deep Vein Thrombosis, Glaucoma, Hiatal Hernia, Malignant Hyperthermia, Pneumonia, Reflux, Renal Disease, Rheumatic Fever, Seizures, Thyroid Disease, Tuberculosis Past Surgical History Orthopedic Surgeries: Yes - CYST FROM LEG Abdominal Surgeries: - RT HEMICOLECTOMY; APPY Genitourinary Surgeries: - CYSTO WITH BLADDER DISTENTION; CIRCUMCISION Cardiac Surgeries: Endocrine Surgeries: Reproductive Surgeries: - VASECTOMY Neurological Surgeries: Ear Surgeries: Nose Surgeries: Throat Surgeries: - TONSILLECTOMY Other Surgeries: - HEMORRHOIDECTOMY Anesthesia Adverse Reactions: FOUND none Family Hx of Anesthesia Advers: none Hx of Motion Sickness: No Pertinent Findings EKG Rhythm: Sinus Bradycardia Physical Exam Respiratory: Bilat breath sounds equal, Lungs clear Cardiovascular: FOUND Regular rate, rhythm, FOUND No murmur Airway Assessment Mallampati Score: II TMD: 3 Fingerbreadths Neck Extension: Good Teeth: Chipped Teeth/Crowns Overall Assessment: No Airway Concerns ASA: 2 Plan Anesthesia Plan: TIVA Discussion Discussed risks/options/alternatives of anesthesia and questions answered. Patient consents. Nursing pain assessment noted. Attestation Statement Prior to the delivery of any anesthetic medication, I examined the patient, developed the plan, obtained the patient's consent and discussed the risk and benefits of the procedure with the patient/guardian. GEOVANY BROWN CRNA Sep 12, 2016 07:26
[2016-09-12] MEDS ORDERED: PROPOFOL 500mg 50 ML IV ONE (08:41)
[2016-09-12] MEDS ORDERED: LIDOCAINE 2% (20mg/ml) 5ml PF SDV ONE (08:41)
[2016-09-12 08:47] VITALS: BP 122/72; PULSE 62; RESP 12; TEMP 96.7; O2SAT 97
[2016-09-12 09:02] VITALS: BP 104/70; PULSE 60; RESP 18; O2SAT 95
--- NOTE | 2016-09-12 09:11 | ANESPO ---
Post-Op Note Date 09/12/16 Time: 09:00 Status Pt Participated in Evaluation: Pt participated in person Vital Signs Date Time Temp Pulse Resp B/P Pulse Ox O2 Delivery O2 Flow Rate FiO2 09/12/16 09:02 60 18 104/70 95 Room Air 09/12/16 08:47 96.7 Respiratory Function: Airway patent Mental Status: Alert/oriented Pain Level Intensity: 0 Hydration: IV infusing Complications during Recovery None apparent Follow-Up Instructions Instructions Per Surgeon GEOVANY BROWN CRNA Sep 12, 2016 09:11
[2016-09-12 09:17] VITALS: BP 117/71; PULSE 61; RESP 18; TEMP 97.2; O2SAT 93
--- NOTE | 2016-09-12 13:51 | OPNOTEF ---
DATE OF SERVICE 09/12/2016 SURGEON Jaime Mike MD PREOPERATIVE DIAGNOSIS Personal history of adenomatous colon polyps. POSTOPERATIVE DIAGNOSIS Personal history of adenomatous colon polyps, sigmoid diverticulosis. PROCEDURE Colonoscopy. ANESTHESIA TIVA BRIEF HISTORY/INDICATIONS Mr. Roger is a 76-year-old gentleman who is well known to my surgical practice. Patient has underwent a prior right hemicolectomy as a result of a large adenomatous colon polyp in the past. He had subsequently underwent followup colonoscopy was found have a single adenomatous colon polyp approximately five years ago. Patient presents today to undergo followup colonoscopy. For completeness please refer to notes included in the patient's chart. FINDINGS Upon colonoscopy there was no evidence for angiodysplastic lesions, polyps or jean carlos malignancies. The patient was found have a moderate number of diverticula within the sigmoid colon region. DESCRIPTION OF PROCEDURE After informed consent was obtained, the patient was brought to the endoscopy suite and placed on the table in left lateral decubitus position. The patient subsequently underwent total intravenous anesthesia by the nurse terrazzo roller per my request. A formal time-out was then completed. Next, a digital rectal examination was performed. Normal sphincter tone. No rectal masses were appreciated. An Olympus colonoscope was inserted in the anus and advanced through the lumen of the colon under direct visualization at all times until the prior enterocolonic anastomosis was identified. One could see the prior staple line and the adjacent small bowel mucosa indicative of his prior anastomosis from his right hemicolectomy. The scope was then slowly withdrawn, again while maintaining visualization of the lumen at all times. As stated above, the entire colon was without evidence for angiodysplastic lesions, polyps or jean carlos malignancies. The patient was found to have a moderate number of diverticula within the sigmoid colon region. Once the colonoscope was withdrawn back into the rectal vault, a J-maneuver was then performed. No worrisome perianal pathology was noted. Scope was allowed to straighten and withdrawn through the anal verge. The patient tolerated the procedure without difficulty and was sent back to the preop area in stable condition. Secondary to the absence of findings upon this colonoscopy, the patient will not need to undergo a repeat colonoscopy until five years now. The patient will be 81 years of age at that point in time and one may not proceed with followup endoscopy therefore, unless specific indication should arise in the future. SB
== END 2016-09-12 09:20 | disposition home or self-care (01) ==
LOC: SCU 06:39
PROVIDERS: ATTEND Surgery
DX: Z12.11 Encounter for screening for malignant neoplasm of colon (principal); K57.30 Diverticulosis of large intestine without perforation or abscess without bleeding; Z86.010 Personal history of colon polyps; Z98.0 Intestinal bypass and anastomosis status
CPT/HCPCS: G0105; J7120